=== PATIENT | male | born 1990 | race Caucasian/White ===

== ENCOUNTER 2016-10-16 21:19 | Emergency (ER) | payer OTHER ==
[2016-10-16 21:36] VITALS: TEMP 98.2
[2016-10-16] MEDS ORDERED: IBUPROFEN 800 MG TAB PO STA (21:55)
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
--- NOTE | 2016-10-16 22:38 | XR ---
EXAM: XR Right Shoulder Complete, 2 or More Views CLINICAL HISTORY: Reason: Pain TECHNIQUE: Two or more views of the right shoulder. COMPARISON: No relevant prior studies available. FINDINGS: Bones/joints: Unremarkable. No acute fracture. No dislocation. Soft tissues: Unremarkable. IMPRESSION: Unremarkable right shoulder x-rays.
[2016-10-16 22:45] VITALS: BP 130/68; PULSE 78; RESP 18
== END 2016-10-16 22:44 | disposition home or self-care (01) ==
LOC: EC 21:19
DX: S40.011A Contusion of right shoulder, initial encounter (principal); F17.200 Nicotine dependence, unspecified, uncomplicated; Y04.0XXA Assault by unarmed brawl or fight, initial encounter; Y92.89 Other specified places as the place of occurrence of the external cause
CPT/HCPCS: 99284

== ENCOUNTER 2016-12-23 15:07 | Emergency (ER) | payer OTHER ==
[2016-12-23 15:11] VITALS: RESP 18
--- NOTE | 2016-12-23 15:25 | ED ---
Male Urogenital HPI - General Chief complaint: Urogenital Stated complaint: Male Time Seen by Provider: 12/23/16 15:12 Source: patient, RN notes reviewed, old records reviewed Mode of arrival: ambulatory Limitations: no limitations - History of Present Illness Initial comments: This is a 26-year-old male with chief complaint of testicular pain for the past 2 days. Patient states that he noticed a lump one week ago on his right testicle. Patient reports that below the skin surface. Patient states that the lump was fine but then it was able over the past 2 days. Patient states that he also reported that he was urinating blood for one week. Patient reports that this was a month ago. Patient reports that it was painless at that time. Patient reports that the hematuria that resolved. Patient denies any recent fever, chills, shortness of breath, chest pain, back pain, abdominal pain, nausea vomiting, numbness or tingling, dysuria , constipation or diarrhea , headaches or visual changes, or any other current symptoms - Related Data Allergies Allergy/AdvReac Type Severity Reaction Status Date / Time No Known Allergies Allergy Verified 12/23/16 15:11 Review of Systems ROS Statement: Those systems with pertinent positive or pertinent negative responses have been documented in the HPI. ROS Other: All systems not noted in ROS Statement are negative. Past Medical History Past Medical History: No Reported History History of Any Multi-Drug Resistant Organisms: None Reported Past Surgical History: No Surgical Hx Reported Past Psychological History: No Psychological Hx Reported Smoking Status: Current every day smoker Past Alcohol Use History: Occasional Past Drug Use History: None Reported General Exam - General Exam Comments Initial Comments: This is a 26-year-old male. No acute distress. Limitations: no limitations Head exam: Present: atraumatic, normocephalic, normal inspection Eye exam: Present: normal appearance, PERRL, EOMI. Absent: scleral icterus, conjunctival injection, periorbital swelling ENT exam: Present: normal exam, mucous membranes moist Neck exam: Present: normal inspection. Absent: tenderness, meningismus, lymphadenopathy Respiratory exam: Present: normal lung sounds bilaterally. Absent: respiratory distress, wheezes, rales, rhonchi, stridor Cardiovascular Exam: Present: regular rate, normal rhythm, normal heart sounds. Absent: systolic murmur, diastolic murmur, rubs, gallop, clicks GI/Abdominal exam: Present: soft, normal bowel sounds. Absent: distended, tenderness, guarding, rebound, rigid exam: Present: testicular tenderness (right testicular tenderness over 1cm area of firmess at the superior pole. ), vertical testicular lie, circumcision. Absent: scrotal swelling Extremities exam: Present: normal inspection, full ROM, normal capillary refill. Absent: tenderness, pedal edema, joint swelling, calf tenderness Back exam: Present: normal inspection Neurological exam: Present: alert, oriented X3, CN II-XII intact Psychiatric exam: Present: normal affect, normal mood Skin exam: Present: warm, dry, intact, normal color. Absent: rash Course Vital Signs 12/23/16 15:08 Temperature 98.8 F Pulse Rate 89 Respiratory 18 Rate Blood Pressure 127/69 O2 Sat by Pulse 98 Oximetry Medical Decision Making - Medical Decision Making Social male chief complaint of 2 days of right sided testicular pain. Patient' s urinalysis is negative for any signs of infection. He does have a palpable area of firmness over the head of the epididymis. Patient's ultrasound showed no signs of epididymitis. No significant scrotal edema or swelling. Patient was informed of all these results. Discussed that he needs to follow-up with urologist and a primary care provider. Discussed monitoring the lump and if he gets worse return to emergency department. Discussed case with Dr. spivey. Recommending Christie support and anti-inflammatory medicine. Patient agrees to plan will comply. - Lab Data Lab Results 12/23/16 Range/Units 15:20 Urine Color Yellow Urine Appearance Clear (Clear) Urine pH 6.0 (5.0-8.0) Ur Specific [place] 1.016 (1.001-1.035) Urine Protein Negative (Negative) Urine Glucose (UA) Negative (Negative) Urine Ketones Negative (Negative) Urine Blood Negative (Negative) Urine Nitrite Negative (Negative) Urine Bilirubin Negative (Negative) Urine Urobilinogen <2.0 (<2.0) mg/dL Ur Leukocyte Esterase Negative (Negative) - Radiology Data Radiology results: report reviewed Doppler ultrasound to assess the testicular vascularity. Good bilateral color flow and weight is seen.. Lumbar scan. Epididymal head seen. No worrisome entered testicular masses seen bilaterally. Coronary images show satisfactory blood to both testicles. Comparison view showed no suspicious shows asymmetric or to administer increased flow towards the end of the study. In the overall impression is unremarkable study. Disposition Clinical Impression: Right testicular pain Disposition: HOME SELF-CARE Condition: Good Instructions: Testicle Pain (ED) Additional Instructions: Patient advised to follow-up with your primary care provider as well as the urology have provided. Patient needs to use scrotal support, ice the area. Monitor for any worsening signs or symptoms including increased pain or swelling. Return to emergency department if the symptoms recur. Referrals: None,Stated [Primary Care Provider] - 1-2 days Ramy Arguelles MD [REFERRING] - 1-2 days Sharlene Nuno MD [STAFF PHYSICIAN] - 1-2 days Stew Corrales MD [STAFF PHYSICIAN] - 1-2 days Time of Disposition: 16:40
[2016-12-23 15:30] LABS: Appearance,Urine Clear (Clear); Bilirubin,Urine Negative (Negative); Glucose,Urine (UA) Negative (Negative); Ketones,Urine Negative (Negative); Leukocyte Esterase,Urine Negative (Negative); Nitrite,Urine Negative (Negative); Protein,Urine Negative (Negative); Specific Gravity,Urine 1.016 (1.001-1.035); UA Billing (MACRO vs. MICRO) CHEM; Urobilinogen,Urine <2.0 mg/dL (<2.0)
--- NOTE | 2016-12-23 16:19 | US ---
EXAMINATION TYPE: US scrotum with doppler. Grayscale and color Doppler Duplex imaging performed of t he scrotum. DATE OF EXAM: 12/23/2016 COMPARISON: NONE CLINICAL HISTORY: Pain. Right side pain x one week ago, felt a lump a few days ago. EXAM MEASUREMENTS: TESTICLES: Right Testicle: 5.2 x 3.8 x 3.1 cm Left Testicle: 5.3 x 4.0 x 3.3 cm EPIDIDYMIS HEAD: Right Epididymis: 1.3 x 1.2 x 0.7 cm Left Epididymis: 1.1 x 1.3 x 0.8 cm Doppler performed to assess for testicular vascularity; good bilateral color flow and waveforms are s een. Presence of hydroceles: no Presence of varicoceles: no Area of lump scanned, epididymal head seen. No worrisome intratesticular masses are seen bilaterally. Color images show satisfactory blood flow t o both testicles. Comparison view shows no suspicious asymmetric diminished or increased flow towards end of study. IMPRESSION: Unremarkable study.
[2016-12-23 16:52] VITALS: BP 125/69; PULSE 86; TEMP 98
== END 2016-12-23 16:51 | disposition home or self-care (01) ==
LOC: EC 15:07
DX: N50.811 Right testicular pain (principal); F17.200 Nicotine dependence, unspecified, uncomplicated
CPT/HCPCS: 76870; 81003; 87491; 87591; 93975; 99284